=== PATIENT | male | born 1965 | race African-American/Black ===

== ENCOUNTER → 2019-05-04 | Outpatient (CLI) | payer MEDICARE ==
[~2019-05-04] MED LIST: ASPI-1393 PO; ATOR-2 PO; GABA-290 PO; IOHEXOL-300 50 ML BOTTLE IV ONE; Jardiance PO; LISI2.5T47 PO; METO25TA6 PO; PIOG15TA6 PO; PRAS10TA6 PO; RANI150T7 PO; SITA100T11 PO
== END | disposition home or self-care (01) ==
LOC: CT 08:43
PROVIDERS: ATTEND Surgery
DX: R10.9 Unspecified abdominal pain (principal)
CPT/HCPCS: 74176; Q9967